=== PATIENT | female | born 1990 | race Caucasian/White ===

== ENCOUNTER 2019-04-20 17:14 | Emergency (ER) | payer MEDICAID ==
[~2019-04-20] VITALS: Ht 165.1 cm; Wt 59.0 kg
--- NOTE | 2019-04-20 17:19 | NUR ---
PT A/OX4, BIB [facility], S/P HEROIN OD. PER MANAGER RESOURCE'S REPORT, PT OD'ED ON HEROIN 30 MIN HOME CARE ASSISTANT AND WAS UNRESPONSIVE AND WAS SUBSEQUENTLY ADMINISTERED NARCAN NASAL SPRAY BY BOYFRIEND. SECOND DOSE OF NARCAN WAS ADMINISTERED BY 83. PT ARRIVED W/ 18G IV ACCESS IN LAC PLACED BY MILDRED. VSS. NAD.
[2019-04-20 17:46] LABS: BASOPHILS % (AUTO) 0.4 % (0.0-2.0); EOSINOPHILS # (AUTO) 0.1 K/uL (0.0-0.7); EOSINOPHILS % (AUTO) 0.9 % (0.0-7.0); HEMATOCRIT 35.6 % (31.2-41.9); HEMOGLOBIN 11.8 g/dL (10.9-14.3); LYMPHOCYTES # (AUTO) 2.2 K/uL (20.0-40.0); LYMPHOCYTES % (AUTO) 33.9 % (20.5-51.5); MEAN CORPUSCULAR HEMOGLOBIN 30.6 uug (24.7-32.8); MEAN CORPUSCULAR HGB CONC 33 g/dL (32.3-35.6); MEAN CORPUSCULAR VOLUME 92.2 fL (75.5-95.3); MONOCYTES # (AUTO) 0.6 K/uL (2.0-10.0); MONOCYTES % (AUTO) 9.6 % (0.0-11.0); NEUTROPHILS # (AUTO) 3.5 K/uL (1.8-8.9); NEUTROPHILS % (AUTO) 55.2 % (38.5-71.5); PLATELET COUNT (AUTO) 297 K/uL (179-408); RED BLOOD CELL COUNT(AUTO) 3.86 MIL/uL (3.63-4.92); WHITE BLOOD COUNT (AUTO) 6.4 K/uL (3.8-11.8)
[2019-04-20 17:55] LABS: CREATININE 0.8 mg/dL (0.6-1.3); POTASSIUM 3.5 mmol/L (3.5-5.1)
[2019-04-20 18:01] LABS: BILIRUBIN,DIRECT 0.1 mg/dL (0.0-0.2); BILIRUBIN,TOTAL 0.3 mg/dL (0.2-1.0); TOTAL PROTEIN, SERUM 6.5 g/dL (6.4-8.2)
--- NOTE | 2019-04-20 18:02 | NUR ---
PER BOYFRIEND'S REPORT, WHO IS CURRENTLY AT THE PT'S BEDSIDE, HE WAS INSTRUCTED BY THE PHYSICIAN SPECIALIST TO INITIATE CHEST COMPRESSIONS PRIOR TO ARRIVAL OF EMS. HE REPORTS HE PERFORMED CHEST COMPRESSIONS FOR APPROXIMATELY 30 SECONDS. PT IS NOW C/O MEDIASTINAL C/P. ER NOTIFIED. AWAITING HCG RESULT PRIOR TO CXR.
--- NOTE | 2019-04-20 18:42 | NUR ---
Patient discharged to home in stable conditon. Written and verbal after care instructions given. Patient verbalizes understanding of instructions. ALL BELONGINGS W/ PT. PT SELF-AMBULATED W/O DIFFICULTY. PT WILL BE DRIVEN HOME BY BOYFRIEND IN PRIVATE VEHICLE. 18G IV ACCESS IN LAC REMOVED PRIOR TO D/C - INNER CANNULA INTACT.
[2019-04-20 18:43] VITALS: BP 133/82
== END 2019-04-20 18:44 | disposition home or self-care (01) ==
LOC: ER 17:14
DX: T40.1X1A Poisoning by heroin, accidental (unintentional), initial encounter (principal); Y92.89 Other specified places as the place of occurrence of the external cause
CPT/HCPCS: 36415; 70030-TC; 71045; 85025; 93005; A4663